=== PATIENT | female | born 1965 | race Caucasian/White ===

== ENCOUNTER → 2024-03-21 17:40 | Outpatient (REF) | payer OTHER, SELFPAY | LOC: RAD 17:40 | PROVIDERS: ATTENDING PHYSICIAN Family Medicine; FAMILY PHYSICIAN Physician Assistant Medical | DX: M79.602 Pain in left arm (principal) | CPT/HCPCS: 73030; 73060 ==

== ENCOUNTER 2024-03-21 18:44 | Emergency (ER) | payer OTHER, SELFPAY ==
[2024-03-21 18:46] VITALS: BP 100/68
--- NOTE | 2024-03-21 20:33 | ED.GENMED ---
History of Present Illness
General
Chief Complaint: Musculo-Skeletal Complaint
Source: patient and spouse
Exam Limitations: none
Time Seen by Provider: 03/21/24 19:17
Nursing documentation reviewed up to this point in time: agreed with
History of Present Illness
History of Present Illness:
58-year-old female with past medical history of hypothyroidism presenting to the emergency department today with concerns of left upper arm fracture that was seen in on an outpatient x-ray told to go the ER for further assessment. Claims this
occurred when she got tripped up falling directly on her left arm earlier today. Denies any head trauma loss of consciousness not on blood thinners.
Past History
Past History
ED Past Medical History: Hypothyroidism
Social History
Tobacco: Non-smoker
Personal:
Living: with family
Employment: Employed
Review of Systems
Review of Systems
Allergies reviewed?: Yes
All Other Systems: ROS reviewed and negative except as documented in HPI and ROS
Phy Exam
Physical Exam
Physical Exam:
GENERAL: Alert , in no apparent distress
EYE: pupils equal and reactive
NECK: Supple, no significant adenopathy.
ENT: o/p clr, mmm.
CARDIAC: Regular rate and rhythm .
LUNGS: Clear breath sounds bilaterally, no acute respiratory distress, no wheezes/rales/rhonchi
ABDOMEN: Soft, without focal tenderness, no r/g, no cvat
NEUROLOGICAL: Alert and oriented, no focal neuro deficits
SKIN: Warm and dry, skin intact.
MUSCULOSKELETAL: Bruising tenderness palpation to the left upper. No tenderness of the clavicle scapula or the lower arm. No discomfort of the elbow wrist or hand. No breaks in the skin., well perfused.
PSYCH: Normal and appropriate interaction.
Course
Orders/Labs/Results
Orders:
Orders
03/21/24 20:52
Sling Left-Treatment ONCE
Vital Signs
Initial and Last Documented VS:
Initial Vital Signs
Temp Pulse Resp BP Pulse Ox
98.2 F 64 22 100/68 98
03/21/24 18:46 03/21/24 18:46 03/21/24 18:46 03/21/24 18:46 03/21/24 18:46
Last Documented Vital Signs
Temp Pulse Resp BP Pulse Ox
98.2 F 68 19 100/68 98
03/21/24 18:46 03/21/24 20:51 03/21/24 20:51 03/21/24 18:46 03/21/24 20:51
MDM/Problems Addressed
MDM/Problems Addressed:
58-year-old female presenting to the emergency department today with concerns of left upper arm discomfort patient found to have a proximal humerus fracture. Neurovascular intact no signs of additional injury. Patient was placed in a shoulder
immobilizer and will follow-up closely with orthopedics. Return precautions given.
*Critical Care Note
Total Time (30-74mins, 75-104mins- exclusive of procedures): Not Applicable
ED Attending Note
-
Portions of this chart may have been created with voice recognition software.� Occasional wrong word or��sound alike� substitutions may have occurred due to the inherent limitations of voice recognition software.
Discharge Plan
Departure
Patient Disposition: Home (Routine Discharge)
Date of Disposition: 03/21/24
Time of Disposition: 20:33
Patient with high blood pressure during this ER visit?: No
Condition: Good
Covid-19: Not Applicable
Discharge Problem:
Closed fracture of left proximal humerus
Instructions: Upper Arm Fracture ED
Prescriptions:
New
oxycodone 5 mg tablet
5 mg PO Q8H PRN (Reason: Pain) Qty: 7 0RF
Referrals:
Richard Lee MD [Active] - Follow up in 5-7 days
Sebastien Meyer PA-C [Family Provider] -
Activity Restrictions/Additional Instructions:
You came to the emergency department today with concerns of a proximal humerus fracture. Please rest ice and follow-up closely with orthopedics. Return to the emergency department any worsening, new or concerning symptoms.
Interventions
Interventions:
*Risk Screen - Suicide Last Done: 03/21/24 18:46
*Neglect/Abuse Screening Last Done: 03/21/24 18:46
ED- Fall Risk Assessment Last Done: 03/21/24 20:00
*Nursing Disposition Last Done: 03/21/24 20:51
ED-Musculoskeletal Assessment Last Done: 03/21/24 19:57
Discharge Date and Time
Discharge Date/Time: 03/21/24 20:53
Print Language: [email or web address]
== END 2024-03-21 20:53 | disposition home or self-care (01) ==
LOC: EMR 18:44
PROVIDERS: EMERGENCY PHYSICIAN Emergency Medicine; FAMILY PHYSICIAN Physician Assistant Medical
DX: S42.202A Unspecified fracture of upper end of left humerus, initial encounter for closed fracture (principal); W01.0XXA Fall on same level from slipping, tripping and stumbling without subsequent striking against object, initial encounter; E03.9 Hypothyroidism, unspecified
CPT/HCPCS: 99282

== ENCOUNTER → 2024-05-31 14:53 | Outpatient (REF) | payer OTHER, SELFPAY | LOC: WDC 14:53 | PROVIDERS: ATTENDING PHYSICIAN Obstetrics & Gynecology; FAMILY PHYSICIAN Physician Assistant Medical | DX: Z12.31 Encounter for screening mammogram for malignant neoplasm of breast (principal) | CPT/HCPCS: 77063; 77067 ==

== ENCOUNTER → 2025-06-01 13:40 | Outpatient (REF) | payer OTHER, SELFPAY | LOC: WDC 13:40 | PROVIDERS: ATTENDING PHYSICIAN Obstetrics & Gynecology; FAMILY PHYSICIAN Physician Assistant Medical | DX: Z12.31 Encounter for screening mammogram for malignant neoplasm of breast (principal) | CPT/HCPCS: 77063; 77067 ==